=== PATIENT | female | born 1945 | race African-American/Black ===

== ENCOUNTER 2023-09-20 08:46 | Inpatient (IN) | payer BC ==
[~2023-09-20] VITALS: Ht 160 cm; Wt 68.0 kg
[2023-09-20 08:50] VITALS: BP_SYST 176; PULSE 80; RESP 16; TEMP 97.7; O2SAT 97
[2023-09-20 10:30] LABS: BASOPHILS # (AUTO) 0.1 K/uL (0.0-0.2); BASOPHILS % (AUTO) 0.6 % (0.0-2.0); EOSINOPHILS % (AUTO) 0.2 % (0.0-4.0); HEMATOCRIT 41.5 % (36-48); HEMOGLOBIN 13.2 g/dL (12.0-16.0); LYMPHOCYTES # (AUTO) 2.6 K/uL (1.0-5.5); LYMPHOCYTES % (AUTO) 16.6 % (20.5-51.5); MEAN CORPUSCULAR HEMOGLOBIN 27 pg (27-31); MEAN CORPUSCULAR HGB CONC 32 % (32-36); MEAN CORPUSCULAR VOLUME 85 fL (79.0-98.0); MONOCYTES # (AUTO) 0.7 K/uL (0.0-1.0); MONOCYTES % (AUTO) 4.6 % (1.7-9.3); NEUTROPHILS # (AUTO) 12.1 K/uL (1.8-7.7); PLATELET COUNT (AUTO) 263 K/uL (130-430); RED BLOOD CELL COUNT(AUTO) 4.88 MIL/uL (4.2-6.2); RED CELL DISTRIBUTION WIDTH 14.4 % (9.0-15.0); WHITE BLOOD COUNT (AUTO) 15.5 K/uL (4.8-10.8)
[2023-09-20 10:45] LABS: ANION GAP 11 (5-15); CALCIUM 10.5 mg/dL (8.4-11.0); CARBON DIOXIDE 27 mmol/L (23-29); CHLORIDE 102 mmol/L (98-107); CREATININE 0.78 mg/dL (0.55-1.30); GLUCOSE 139 mg/dL (74-106); POTASSIUM 3.8 mmol/L (3.5-5.1); SODIUM SERUM 140 mmol/L (136-145); UREA NITROGEN, BLOOD 15 mg/dL (8-21)
[2023-09-20 10:53] LABS: ALANINE AMINOTRANSFERASE 19 U/L (12-78); ALBUMIN 3.9 g/dL (3.4-4.8); ASPARTATE AMINOTRANSFERASE 18 U/L (10-37); TOTAL BILIRUBIN 0.6 mg/dL (0.0-1.0)
[2023-09-20] MEDS ORDERED: PANTOPRAZOLE SODIUM 40 MG TAB PO ONE (11:30)
[2023-09-20] MEDS ORDERED: iohexoL 350 mgI/mL, 100 ML INFUS..BTL IV ONE (13:08)
[2023-09-20] MEDS ORDERED: OMEP20CA15 PO ×2 (13:32)
[2023-09-20] MEDS ORDERED: NITROGLYCERIN 1 INCH (GM) OINT. TP ONE (15:45)
[2023-09-20] MEDS ORDERED: ASPIRIN 81 MG TAB.CHEW PO ONE (15:45)
[2023-09-20 20:14] VITALS: BP_SYST 133; PULSE 89; RESP 18
[2023-09-20 21:00] VITALS: O2SAT 96
[2023-09-20] MEDS ORDERED: NALOXONE HCL 0.4 MG/ML AMP (NARCAN) IVP PRN ×2 (21:30)
[2023-09-20] MEDS ORDERED: ONDANSETRON HCL 4 MG/2 ML VIAL IVP PRN (21:30)
[2023-09-20] MEDS ORDERED: ACETAMINOPHEN 325 MG TABLET PO PRN ×3 (21:30→23:00)
[2023-09-20] MEDS ORDERED: HYDROcodone/ACETAMIN 10-325 MG TAB PO PRN (21:30)
[2023-09-20] MEDS ORDERED: LORazepam 2 MG/ML VIAL IVP PRN (21:30)
[2023-09-20] MEDS: amLODIPine BESYLATE 5 MG TABLET PO SCH (23:00)
[2023-09-20] MEDS ORDERED: NITROGLYCERIN 0.4 MG TAB.SUBL SL ONE (23:00)
[2023-09-21 00:15] VITALS: BP_SYST 119; PULSE 69; RESP 20; TEMP 97.3; O2SAT 96
[2023-09-21] MEDS: NORMAL SALINE 5 ML DISP.SYRIN IVF SCH ×4 (00:29→22:00)
[2023-09-21 05:42] LABS: BASOPHILS % (AUTO) 0.5 % (0.0-2.0); EOSINOPHILS % (AUTO) 0.1 % (0.0-4.0); HEMATOCRIT 36.4 % (36-48); HEMOGLOBIN 11.7 g/dL (12.0-16.0); MEAN CORPUSCULAR HEMOGLOBIN 27 pg (27-31); MEAN CORPUSCULAR HGB CONC 32 % (32-36); MEAN CORPUSCULAR VOLUME 83 fL (79.0-98.0); MONOCYTES % (AUTO) 9.4 % (1.7-9.3); NEUTROPHILS # (AUTO) 7.4 K/uL (1.8-7.7); PLATELET COUNT (AUTO) 241 K/uL (130-430); RED BLOOD CELL COUNT(AUTO) 4.38 MIL/uL (4.2-6.2); RED CELL DISTRIBUTION WIDTH 13.9 % (9.0-15.0); WHITE BLOOD COUNT (AUTO) 10.4 K/uL (4.8-10.8)
[2023-09-21 05:57] LABS: ALANINE AMINOTRANSFERASE 18 U/L (12-78); ALBUMIN 3.3 g/dL (3.4-4.8); ANION GAP 10 (5-15); ASPARTATE AMINOTRANSFERASE 15 U/L (10-37); CALCIUM 9.5 mg/dL (8.4-11.0); CARBON DIOXIDE 26 mmol/L (23-29); CHLORIDE 101 mmol/L (98-107); CREATININE 0.93 mg/dL (0.55-1.30); GLUCOSE 128 mg/dL (74-106); PHOSPHORUS 2.9 mg/dL (2.7-4.5); POTASSIUM 3.8 mmol/L (3.5-5.1); SODIUM SERUM 137 mmol/L (136-145); TOTAL BILIRUBIN 1.2 mg/dL (0.0-1.0); UREA NITROGEN, BLOOD 18 mg/dL (8-21)
[2023-09-21 08:20] VITALS: O2SAT 100
[2023-09-21 08:28] VITALS: BP_SYST 122; PULSE 90; RESP 16; TEMP 98.4; O2SAT 100
[2023-09-21 08:38] LABS: TOTAL PROTEIN, SERUM 6.9 g/dL (6.4-8.3)
[2023-09-21] MEDS: PANTOPRAZOLE SODIUM 40 MG TAB PO SCH (10:57)
[2023-09-21] MEDS: amLODIPine BESYLATE 5 MG TABLET PO SCH (10:59)
[2023-09-21 12:00] VITALS: BP_SYST 129; PULSE 86; RESP 16; TEMP 98.7; O2SAT 97
[2023-09-21] MEDS: HYDROcodone/ACETAMIN 5-325 MG TAB (NORCO/ VICODIN) PO PRN (12:31)
[2023-09-21 20:00] VITALS: BP_SYST 119; PULSE 81; RESP 18; TEMP 97.8; O2SAT 97; O2SAT 98
[2023-09-21 20:10] VITALS: BP_SYST 119; PULSE 81; RESP 18; TEMP 97.7; O2SAT 97
[2023-09-22] VITALS (7 sets, daily range): BP systolic 132–150; PULSE 69–82; RESP 17–20; TEMP 97.5–98.9; O2SAT 97–100
[2023-09-22] MEDS: HYDROcodone/ACETAMIN 5-325 MG TAB (NORCO/ VICODIN) PO PRN (01:55)
[2023-09-22] MEDS: NORMAL SALINE 5 ML DISP.SYRIN IVF SCH ×3 (06:00→21:54)
[2023-09-22 06:36] LABS: BASOPHILS # (AUTO) 0.1 K/uL (0.0-0.2); BASOPHILS % (AUTO) 0.9 % (0.0-2.0); EOSINOPHILS # (AUTO) 0.2 K/uL (0.0-0.4); EOSINOPHILS % (AUTO) 2.2 % (0.0-4.0); HEMATOCRIT 37.6 % (36-48); HEMOGLOBIN 12.1 g/dL (12.0-16.0); LYMPHOCYTES # (AUTO) 3.4 K/uL (1.0-5.5); LYMPHOCYTES % (AUTO) 36.1 % (20.5-51.5); MEAN CORPUSCULAR HEMOGLOBIN 27 pg (27-31); MEAN CORPUSCULAR HGB CONC 32 % (32-36); MEAN CORPUSCULAR VOLUME 84 fL (79.0-98.0); MONOCYTES # (AUTO) 0.8 K/uL (0.0-1.0); MONOCYTES % (AUTO) 8.4 % (1.7-9.3); NEUTROPHILS # (AUTO) 4.9 K/uL (1.8-7.7); NEUTROPHILS % (AUTO) 52.4 % (40.0-70.0); PLATELET COUNT (AUTO) 239 K/uL (130-430); RED BLOOD CELL COUNT(AUTO) 4.46 MIL/uL (4.2-6.2); RED CELL DISTRIBUTION WIDTH 14.4 % (9.0-15.0); WHITE BLOOD COUNT (AUTO) 9.4 K/uL (4.8-10.8)
[2023-09-22 06:56] LABS: ANION GAP 9 (5-15); CALCIUM 9.2 mg/dL (8.4-11.0); CARBON DIOXIDE 24 mmol/L (23-29); CHLORIDE 104 mmol/L (98-107); CREATININE 0.91 mg/dL (0.55-1.30); GLUCOSE 97 mg/dL (74-106); SODIUM SERUM 137 mmol/L (136-145); UREA NITROGEN, BLOOD 19 mg/dL (8-21)
[2023-09-22] MEDS: amLODIPine BESYLATE 5 MG TABLET PO SCH (09:00)
[2023-09-22] MEDS: PANTOPRAZOLE SODIUM 40 MG TAB PO SCH (09:00)
[2023-09-23 00:53] VITALS: BP_SYST 135; PULSE 74; RESP 18; TEMP 98.6
[2023-09-23] MEDS: NORMAL SALINE 5 ML DISP.SYRIN IVF SCH (05:59)
[2023-09-23 06:54] LABS: BASOPHILS # (AUTO) 0.1 K/uL (0.0-0.2); EOSINOPHILS # (AUTO) 0.3 K/uL (0.0-0.4); EOSINOPHILS % (AUTO) 3.1 % (0.0-4.0); HEMATOCRIT 38.6 % (36-48); HEMOGLOBIN 12.2 g/dL (12.0-16.0); LYMPHOCYTES % (AUTO) 37.4 % (20.5-51.5); MEAN CORPUSCULAR HEMOGLOBIN 27 pg (27-31); MEAN CORPUSCULAR HGB CONC 32 % (32-36); MEAN CORPUSCULAR VOLUME 85 fL (79.0-98.0); MONOCYTES # (AUTO) 0.6 K/uL (0.0-1.0); MONOCYTES % (AUTO) 8.1 % (1.7-9.3); NEUTROPHILS % (AUTO) 50.4 % (40.0-70.0); PLATELET COUNT (AUTO) 270 K/uL (130-430); RED BLOOD CELL COUNT(AUTO) 4.56 MIL/uL (4.2-6.2); RED CELL DISTRIBUTION WIDTH 14.4 % (9.0-15.0)
[2023-09-23 07:32] LABS: ANION GAP 5 (5-15); CARBON DIOXIDE 26 mmol/L (23-29); CHLORIDE 104 mmol/L (98-107); CREATININE 0.83 mg/dL (0.55-1.30); GLUCOSE 104 mg/dL (74-106); POTASSIUM 4.1 mmol/L (3.5-5.1); SODIUM SERUM 135 mmol/L (136-145); UREA NITROGEN, BLOOD 10 mg/dL (8-21)
[2023-09-23 08:18] VITALS: BP_SYST 130; PULSE 72; RESP 18; TEMP 98.7; O2SAT 98
[2023-09-23] MEDS ORDERED: SIMETHICONE 40 MG/0.6 ML ML ONE (08:30)
[2023-09-23] MEDS: MEPERIDINE 100 MG INJ. 100 MG/ML VIAL ONE ×2 (09:09→09:11)
[2023-09-23] MEDS: MIDAZOLAM HCL 5 MG/5 ML VIAL ONE ×3 (09:09→09:14)
[2023-09-23 09:18] VITALS: O2SAT 98
[2023-09-23 10:01] VITALS: BP_SYST 140; PULSE 74; RESP 14; TEMP 96.5; O2SAT 97
[2023-09-23] MEDS: PANTOPRAZOLE SODIUM 40 MG TAB PO SCH (10:50)
[2023-09-23] MEDS: amLODIPine BESYLATE 5 MG TABLET PO SCH (10:52)
[2023-09-23] MEDS ORDERED: PRO40 PO (11:36)
[2023-09-23] MEDS ORDERED: AMLO5TAB4 PO (11:36)
[2023-09-23] MEDS ORDERED: HYDROcodone/ACETAMIN 5-325 MG TAB (NORCO/ VICODIN) PO PRN (11:45)
[2023-09-23 11:54] VITALS: BP_SYST 144; PULSE 66; RESP 18; TEMP 98.7; O2SAT 97
[2023-09-23 12:38] VITALS: BP_SYST 144; PULSE 66; RESP 18; TEMP 98.9; O2SAT 97
== END 2023-09-23 14:00 | disposition home or self-care (01) | DRG 392 ==
LOC: EDBD 08:46 → SED 08:46 → STU 16:19
PROVIDERS: ADMIT Preventive Medicine Preventive Medicine/Occupational Environmental Medicine; ATTEND Preventive Medicine Preventive Medicine/Occupational Environmental Medicine
PROC: 05HY33Z Insertion of Infusion Device into Upper Vein, Percutaneous Approach (ICD-10-PCS; 2023-09-20)
PROC: B54MZZA Ultrasonography of Right Upper Extremity Veins, Guidance (ICD-10-PCS; 2023-09-20)
PROC: 0DB78ZX Excision of Stomach, Pylorus, Via Natural or Artificial Opening Endoscopic, Diagnostic (ICD-10-PCS; principal; 2023-09-23 07:00)
DX: K29.70 Gastritis, unspecified, without bleeding (principal); E87.1 Hypo-osmolality and hyponatremia; R07.89 Other chest pain; K20.90 Esophagitis, unspecified without bleeding; K59.00 Constipation, unspecified; R73.9 Hyperglycemia, unspecified; I10 Essential (primary) hypertension; E88.09 Other disorders of plasma-protein metabolism, not elsewhere classified; Z88.8 Allergy status to other drugs, medicaments and biological substances; Z79.899 Other long term (current) drug therapy; Z90.710 Acquired absence of both cervix and uterus; Z80.51 Family history of malignant neoplasm of kidney
CPT/HCPCS: 36415; 43239; 70450-TC; 71045; 76376; 80048; 80053; 82962; 83690; 83735; 84100; 84484; 85025; 87081; 88305; 88312; 88313; 93005; 93306; 93970; 99285; G0378; J2175; J2250; Q9967